=== PATIENT | male | born 1985 | race Caucasian/White ===

== ENCOUNTER 2017-04-15 23:57 | Emergency (ER) | payer MEDICAID ==
[~2017-04-15] VITALS: Ht 180.3 cm; Wt 90.7 kg
--- NOTE | 2017-04-16 00:05 | NUR ---
TO BED 9 A 32 YO MALE BIBSELF, C/O FLU LIKE SYMPTOMS X 1 WEEK. AFERBILE. NO S/S OF ACUTE DISTRESS. BREATHING EVEN AND UNLABORED. VSS. COMFORT MEASURES RENDERED. AWAITING FOR ER MD PERKINS.
--- NOTE | 2017-04-16 01:43 | NUR ---
Patient discharged to home in stable condition. Written and verbal after care instructions given. Patient verbalizes understanding of instruction. Patient is ambulatory with steady gait, no further complaints.
[2017-04-16 01:44] VITALS: BP 118/78
== END 2017-04-16 01:45 | disposition home or self-care (01) ==
LOC: ER 23:59
DX: J06.9 Acute upper respiratory infection, unspecified (principal); I10 Essential (primary) hypertension
CPT/HCPCS: 99283; A4606; Z7610